=== PATIENT | female | born 1995 | race American Indian/Alaskan Native ===

== ENCOUNTER 2018-12-14 08:48 | Emergency (ER) | payer SELFPAY ==
[2018-12-14 08:57] VITALS: BP 115/75
--- NOTE | 2018-12-14 09:25 | Emergency Department Report ---
- General Chief complaint: Skin/Abscess/Foreign Body Stated complaint: BOIL LEFT LEG Time Seen by Provider: 12/14/18 08:59 Source: patient Mode of arrival: Ambulatory Limitations: No Limitations - History of Present Illness Initial comments: 23-year-old -English female presents to the ER for complaint of a boil to her left groin area 3 days. Patient reports she's never had this before. She admits that is painful denies any discharge from the bowl reports normal vaginal discharge denies any fever chills no nausea no vomiting no abdominal pain. She does have CLERICAL STOCK INSPECTOR Dr. Bullock but he has no openings today. MD complaint: abscess/boil Onset/Timin -: days(s) Location: genitals Severity: moderate Severity scale (0 -10): 7 Quality: aching Consistency: constant Improves with: none Worsens with: movement Associated symptoms: denies other symptoms Treatments Prior to Arrival: none - Related Data Previous Rx's Medication Instructions Recorded Last Taken Type Clindamycin [Clindamycin CAP] 300 mg PO Q8H #30 cap 12/14/18 Unknown Rx Ibuprofen [Motrin 600 MG tab] 600 mg PO Q8H PRN #15 tablet 12/14/18 Unknown Rx Allergies Allergy/AdvReac Type Severity Reaction Status Date / Time No Known Allergies Allergy Verified 12/14/18 08:50 Abscess Boil HPI - HPI Chief Complaint: Skin/Abscess/Foreign Body Stated Complaint: BOIL LEFT LEG Time Seen by Provider: 12/14/18 08:59 Home Medications: Previous Rx's Medication Instructions Recorded Last Taken Type Clindamycin [Clindamycin CAP] 300 mg PO Q8H #30 cap 12/14/18 Unknown Rx Ibuprofen [Motrin 600 MG tab] 600 mg PO Q8H PRN #15 tablet 12/14/18 Unknown Rx Allergies/Adverse Reactions: Allergies Allergy/AdvReac Type Severity Reaction Status Date / Time No Known Allergies Allergy Verified 12/14/18 08:50 ED Review of Systems ROS: Stated complaint: BOIL LEFT LEG Other details as noted in HPI Comment: All other systems reviewed and negative ED Past Medical Hx - Past Medical History Previous Medical History?: No - Surgical History Past Surgical History?: No - Social History Smoking Status: Never Smoker Substance Use Type: None - Medications Home Medications: Home Medications Medication Instructions Recorded Confirmed Last Taken Type Clindamycin [Clindamycin CAP] 300 mg PO Q8H #30 cap 12/14/18 Unknown Rx Ibuprofen [Motrin 600 MG tab] 600 mg PO Q8H PRN #15 tablet 12/14/18 Unknown Rx ED Physical Exam - General Limitations: No Limitations General appearance: alert, in no apparent distress - Head Head exam: Present: atraumatic, normocephalic - Eye Eye exam: Present: normal appearance - ENT ENT exam: Present: mucous membranes moist - Neck Neck exam: Present: normal inspection - GI/Abdominal GI/Abdominal exam: Present: soft. Absent: distended, tenderness - External exam: Present: swelling, lesions (abscess) - Extremities Exam Extremities exam: Present: normal inspection, full ROM - Neurological Exam Neurological exam: Present: alert, oriented X3, normal gait - Psychiatric Psychiatric exam: Present: normal affect, normal mood - Expanded Skin Exam Expanded Type of lesion: Present: abscess Distribution of rash: genitals Description of rash: Present: tenderness, swelling, fluctuant ED Course Vital Signs 12/14/18 08:53 Temperature 98.5 F Pulse Rate 83 Respiratory 16 Rate Blood Pressure 115/75 O2 Sat by Pulse 100 Oximetry - I & D Left Vagina Type of Procedure: Simple Blade Size: 11 I & D Procedure: betadine prep, sterile drapes applied, sterile dressing applied Progress: Patient tolerated procedure well. Able to express about 8 mL of purulent discharge ED Medical Decision Making - Medical Decision Making 23-year-old -English female presents to the ER for complaint of a boil to her left groin area 3 days. Patient reports she's never had this before. She admits that is painful denies any discharge from the bowl reports normal vaginal discharge denies any fever chills no nausea no vomiting no abdominal pain. She does have CLERICAL STOCK INSPECTOR Dr. Bullock but he has no openings today. Incision and drain performed on left vaginal minor labia. Patient be placed on clindamycin and ibuprofen to follow-up with her CLERICAL STOCK INSPECTOR if there is any further concerns. Critical care attestation.: If time is entered above; I have spent that time in minutes in the direct care of this critically ill patient, excluding procedure time. ED Disposition Clinical Impression: Abscess of vagina Disposition: TO HOME OR SELFCARE Is pt being admited?: No Does the pt Need Aspirin: No Condition: Stable Instructions: Incision and Drainage (ED), Bartholin Cyst (ED) Prescriptions: Clindamycin [Clindamycin CAP] 300 mg PO Q8H #30 cap Ibuprofen [Motrin 600 MG tab] 600 mg PO Q8H PRN #15 tablet PRN Reason: Pain Referrals: Your,RADAR ENGINEER [Other] - 3-5 Days
[2018-12-14] MEDS ORDERED: LIDOCAINE-MPF (1%) 10 MG/1 ML VIAL 5 ML INFILTRATI ONE (09:38)
[2018-12-14] MEDS ORDERED: LIDOCAINE-MPF (1%) 10 MG/1 ML VIAL 5 ML ONE (09:41)
== END 2018-12-14 10:32 | disposition home or self-care (01) ==
LOC: ED 08:48
DX: N76.0 Acute vaginitis (principal)
CPT/HCPCS: 99282